=== PATIENT | female | born 1950 | race Caucasian/White ===

== ENCOUNTER 2023-03-31 13:25 | Outpatient (CLI) | payer MEDICARE ==
[2023-03-31 15:32] LABS: Hemoglobin 11.3 g/dL (12.0-15.5); Mean Corpuscular HGB CONC 31.9 g/dL (32.0-36.0); Mean Corpuscular Hemoglobin 32.5 pg (27.0-33.0); Mean Corpuscular Volume 101.7 fl (81.6-98.3); Mean Platelet Volume 10.9 fl (7.4-10.4); Platelet Count 179 10x3/uL (150-450); Red Blood Cell (RBC) Count 3.48 10x6/uL (3.90-5.03); White Blood Cell (WBC) Count 4.8 10x3/uL (3.5-10.5)
[2023-03-31 15:37] LABS: Prothrombin Time 10.6 sec (9.5-12.1)
[2023-03-31 15:43] LABS: Anion Gap 13 mmol/L (10-20); BUN (Urea Nitrogen) 15 mg/dL (9.8-20.1); Calc. Creatinine Clearance 0 mL/min (70-130); Carbon Dioxide 24 mmol/L (23-31); Chloride 108 mmol/L (98-107); Estimated GFR 40; Glucose 89 mg/dL (83-110); Potassium 4.4 mmol/L (3.5-5.1); Sodium 141 mmol/L (136-145)
== END 2023-03-31 13:26 | disposition home or self-care (01) ==
LOC: CSHLAB 13:25
PROVIDERS: ATTEND Orthopaedic Surgery
DX: Z01.818 Encounter for other preprocedural examination (principal); M47.816 Spondylosis without myelopathy or radiculopathy, lumbar region; M41.86 Other forms of scoliosis, lumbar region
CPT/HCPCS: 72100; 80048; 85027; 85610; 85730; 86850; 86900; 86901; 93005; 93010

== ENCOUNTER 2023-05-28 22:32 | Inpatient (IN) | payer MEDICARE ==
[2023-05-28] MEDS ORDERED: Ondansetron PF 4 MG/2 ML Vial IVP PRN (23:14)
[2023-05-28] MEDS ORDERED: Guaifenesin DM 100-10/5 ML UDCUP PO PRN (23:14)
[2023-05-28] MEDS ORDERED: Calcium Carbonate 500 MG ChewTAB PO PRN (23:14)
[2023-05-28] MEDS ORDERED: Ipratropium/Albuterol 3 ML NEB NEB PRN (23:19)
[2023-05-28] MEDS ORDERED: Ipratropium/Albuterol 3 ML NEB NEB SCH (23:30)
[2023-05-29 00:47] LABS: Actual Bicarbonate (HCO3v) 15.9 mEq/L (22-28); Base Excess -8.6 mEq/L (-2 - +2); Calcium, Ionized (venous) 1.11 mmol/L (1.16-1.32); Chloride (VBG) 101 mmol/L (98-106); Hematocrit-VBG 22 % (36.0-47.0); Hemoglobin (Hb) 7.4 g/dL (11.7-16.1); Puncture Site Other Site; RapidComm Collect By Lab; Sodium 125.8 mmol/L (133-146); pH (venous) 7.363 (7.32-7.43)
[2023-05-29 01:10] VITALS: BMI 37.9
[2023-05-29 01:12] LABS: #Monocytes 1.1 10x3/uL (0.0-1.1); #Neutrophils 8.6 10x3/uL (1.5-8.4); %Basophils 0.1 % (0.0-2.0); %Eosinophils 0.2 % (0.0-6.0); %Lymphocytes 8.8 % (18.0-47.0); %Monocytes 9.8 % (0.0-10.0); %Neutrophils 77.3 % (40.0-75.0); Hematocrit 18.4 % (34.9-44.5); Hemoglobin 6.1 g/dL (12.0-15.5); Mean Corpuscular HGB CONC 33.2 g/dL (32.0-36.0); Mean Corpuscular Hemoglobin 30.3 pg (27.0-33.0); Mean Corpuscular Volume 91.5 fl (81.6-98.3); Mean Platelet Volume 10.7 fl (7.4-10.4); Platelet Count 179 10x3/uL (150-450); RBC Distribution Width 15.6 % (11.5-14.5); Red Blood Cell (RBC) Count 2.01 10x6/uL (3.90-5.03); White Blood Cell (WBC) Count 11.2 10x3/uL (3.5-10.5)
[2023-05-29 01:21] LABS: PTT 34.8 sec (22.0-33.0); Prothrombin Time 10.4 sec (9.5-12.1)
[2023-05-29 01:24] LABS: ALT (SGPT) 51 U/L (8-55); AST (SGOT) 143 U/L (5-34); Alkaline Phosphatase 143 U/L (40-110); Anion Gap 18 mmol/L (10-20); BUN (Urea Nitrogen) 74 mg/dL (9.8-20.1); Bilirubin, Total 1.5 mg/dL (0.2-1.2); CK (CPK) 907 U/L (29-168); Calc. Creatinine Clearance 21 mL/min (70-130); Calcium 8.1 mg/dL (7.8-10.44); Carbon Dioxide 14 mmol/L (23-31); Chloride 101 mmol/L (98-107); Estimated GFR 12; Globulin 2.5 g/dL (2.4-3.5); Glucose 93 mg/dL (83-110); Potassium 4.5 mmol/L (3.5-5.1); Protein, Total 5.5 g/dL (5.8-8.1); Sodium 128 mmol/L (136-145)
[2023-05-29 01:39] LABS: Troponin I 0.234 ng/mL (< 0.028)
[2023-05-29] MEDS ORDERED: Vancomycin Dose by Levels Sliding Scale (Wt > 99) FS SCH (02:15)
[2023-05-29] MEDS ORDERED: Albumin 25% 25 GM/100 ML BOT IVPB SCH (02:45)
[2023-05-29] MEDS ORDERED: Sodium Bicarbonate 150 MEQ in Dextrose 5% in Water 1,000 ML IV SCH (03:00)
[2023-05-29] MEDS ORDERED: Vancomycin 1.5 GRAM/300 ML BAG 1.5 GM in Premix Bag 1 BAG IVPB SCH ×2 (04:00→08:00)
[2023-05-29] MEDS: Cefepime 1 GM in Sodium Chloride 0.9% 100 ML IVPB SCH ×2 (04:43→15:08)
[2023-05-29 06:17] LABS: Lactic Acid 0.9 mmol/L (0.5-2.2)
[2023-05-29 06:22] LABS: ALT (SGPT) 46 U/L (8-55); AST (SGOT) 128 U/L (5-34); Albumin 2.7 g/dL (3.4-4.8); Alkaline Phosphatase 133 U/L (40-110); Anion Gap 17 mmol/L (10-20); BUN (Urea Nitrogen) 74 mg/dL (9.8-20.1); Bilirubin, Total 1.4 mg/dL (0.2-1.2); Calc. Creatinine Clearance 21 mL/min (70-130); Calcium 8.1 mg/dL (7.8-10.44); Carbon Dioxide 13 mmol/L (23-31); Chloride 102 mmol/L (98-107); Estimated GFR 12; Globulin 2.8 g/dL (2.4-3.5); Glucose 91 mg/dL (83-110); Potassium 4.7 mmol/L (3.5-5.1); Protein, Total 5.5 g/dL (5.8-8.1); Sodium 127 mmol/L (136-145)
[2023-05-29 07:09] LABS: Bilirubin 1+ (Negative); Blood, Urine 250 (Negative); Clarity Cloudy (Clear); Glucose, Urine (Dipstick) Normal (Negative); Ketone, Urine Negative (Negative); Leukocyte 100 (Negative); Nitrite Negative (Negative); Protein, Urine (Dipstick) 30 mg/dl (Neg-Trace)
[2023-05-29 07:29] LABS: Bacteria/HPF 3+ HPF (None Seen); RBC/HPF Greater than 50 HPF (0-3); Squamous Epithelial 0-3 HPF (0-3); Transitional Epithelial 0-3 HPF (None Seen)
[2023-05-29 07:30] LABS: Calcium Oxalate Crystals Rare HPF (None Seen)
[2023-05-29 07:31] LABS: Yeast-Budding Rare HPF (None Seen)
[2023-05-29 07:39] LABS: SARS-CoV-2 NAA Rapid Test Not Detected (NotDetected)
[2023-05-29] MEDS ORDERED: Famotidine 20 MG TAB PO SCH (09:00)
[2023-05-29] MEDS: Metoprolol Tartrate 25 MG TAB PO SCH ×2 (09:49→20:27)
[2023-05-29] MEDS: Ferrous Sulfate 325 MG TAB PO SCH (09:49)
[2023-05-29] MEDS: Multivitamin W/ Minerals 1 TAB PO SCH (09:49)
[2023-05-29 11:59] LABS: #Monocytes 0.6 10x3/uL (0.0-1.1); #Neutrophils 6.8 10x3/uL (1.5-8.4); %Basophils 0.2 % (0.0-2.0); %Eosinophils 0.2 % (0.0-6.0); %Lymphocytes 9.9 % (18.0-47.0); %Neutrophils 78.8 % (40.0-75.0); Hematocrit 25.7 % (34.9-44.5); Hemoglobin 8.6 g/dL (12.0-15.5); Mean Corpuscular HGB CONC 33.5 g/dL (32.0-36.0); Mean Corpuscular Hemoglobin 30.2 pg (27.0-33.0); Mean Corpuscular Volume 90.2 fl (81.6-98.3); Platelet Count 131 10x3/uL (150-450); RBC Distribution Width 14.6 % (11.5-14.5); Red Blood Cell (RBC) Count 2.85 10x6/uL (3.90-5.03); White Blood Cell (WBC) Count 8.7 10x3/uL (3.5-10.5)
[2023-05-29 12:06] LABS: Anion Gap 16 mmol/L (10-20); BUN (Urea Nitrogen) 72 mg/dL (9.8-20.1); Calc. Creatinine Clearance 22 mL/min (70-130); Calcium 8.1 mg/dL (7.8-10.44); Carbon Dioxide 14 mmol/L (23-31); Chloride 104 mmol/L (98-107); Estimated GFR 12; Glucose 106 mg/dL (83-110); Potassium 4.2 mmol/L (3.5-5.1); Sodium 130 mmol/L (136-145)
[2023-05-29 14:14] LABS: Anion Gap 16 mmol/L (10-20); BUN (Urea Nitrogen) 71 mg/dL (9.8-20.1); Calc. Creatinine Clearance 22 mL/min (70-130); Carbon Dioxide 13 mmol/L (23-31); Chloride 101 mmol/L (98-107); Estimated GFR 13; Glucose 107 mg/dL (83-110); Potassium 4.1 mmol/L (3.5-5.1); Sodium 126 mmol/L (136-145)
[2023-05-29 14:18] LABS: Hematocrit 28.2 % (34.9-44.5)
[2023-05-29 14:19] LABS: #Monocytes 1.3 10x3/uL (0.0-1.1); #Neutrophils 10.3 10x3/uL (1.5-8.4); %Basophils 0.3 % (0.0-2.0); %Eosinophils 0.3 % (0.0-6.0); %Lymphocytes 10.1 % (18.0-47.0); %Monocytes 9.8 % (0.0-10.0); %Neutrophils 75.6 % (40.0-75.0); Hemoglobin 9.1 g/dL (12.0-15.5); Mean Corpuscular HGB CONC 32.3 g/dL (32.0-36.0); Mean Corpuscular Hemoglobin 30.2 pg (27.0-33.0); Mean Corpuscular Volume 93.7 fl (81.6-98.3); Mean Platelet Volume 10.9 fl (7.4-10.4); Platelet Count 131 10x3/uL (150-450); Red Blood Cell (RBC) Count 3.01 10x6/uL (3.90-5.03); White Blood Cell (WBC) Count 13.6 10x3/uL (3.5-10.5)
[2023-05-29 20:24] LABS: #Monocytes 0.8 10x3/uL (0.0-1.1); #Neutrophils 7.4 10x3/uL (1.5-8.4); %Basophils 0.2 % (0.0-2.0); %Eosinophils 0.4 % (0.0-6.0); %Lymphocytes 10.7 % (18.0-47.0); %Monocytes 8.6 % (0.0-10.0); %Neutrophils 75.6 % (40.0-75.0); Hematocrit 26.3 % (34.9-44.5); Hemoglobin 8.9 g/dL (12.0-15.5); Mean Corpuscular HGB CONC 33.8 g/dL (32.0-36.0); Mean Corpuscular Hemoglobin 30.5 pg (27.0-33.0); Mean Corpuscular Volume 90.1 fl (81.6-98.3); Mean Platelet Volume 10.7 fl (7.4-10.4); Platelet Count 137 10x3/uL (150-450); Red Blood Cell (RBC) Count 2.92 10x6/uL (3.90-5.03); White Blood Cell (WBC) Count 9.7 10x3/uL (3.5-10.5)
[2023-05-29] MEDS: Acetaminophen 325 MG TAB PO PRN (20:28)
[2023-05-29 20:45] LABS: Anion Gap 18 mmol/L (10-20); BUN (Urea Nitrogen) 69 mg/dL (9.8-20.1); Calc. Creatinine Clearance 24 mL/min (70-130); Calcium 7.9 mg/dL (7.8-10.44); Carbon Dioxide 14 mmol/L (23-31); Chloride 99 mmol/L (98-107); Estimated GFR 14; Glucose 111 mg/dL (83-110); Potassium 3.7 mmol/L (3.5-5.1); Sodium 127 mmol/L (136-145)
[2023-05-29] MEDS ORDERED: Atorvastatin Calcium 40 MG TAB PO SCH (21:00)
[2023-05-30] MEDS: Cefepime 1 GM in Sodium Chloride 0.9% 100 ML IVPB SCH ×2 (02:22→15:27)
[2023-05-30 03:51] LABS: Troponin I 0.108 ng/mL (< 0.028)
[2023-05-30 07:19] LABS: Vancomycin, Random 27.7 ug/mL (See Comment)
[2023-05-30 07:55] LABS: Anion Gap 16 mmol/L (10-20); BUN (Urea Nitrogen) 68 mg/dL (9.8-20.1); Calc. Creatinine Clearance 25 mL/min (70-130); Calcium 8.1 mg/dL (7.8-10.44); Carbon Dioxide 17 mmol/L (23-31); Chloride 100 mmol/L (98-107); Estimated GFR 15; Glucose 83 mg/dL (83-110); Potassium 3.6 mmol/L (3.5-5.1); Sodium 129 mmol/L (136-145)
[2023-05-30] MEDS: Metoprolol Tartrate 25 MG TAB PO SCH ×2 (08:17→21:23)
[2023-05-30] MEDS: Multivitamin W/ Minerals 1 TAB PO SCH (08:17)
[2023-05-30] MEDS: Ferrous Sulfate 325 MG TAB PO SCH (08:17)
[2023-05-30] MEDS: Famotidine 20 MG TAB PO SCH (08:18)
[2023-05-30] MEDS: Acetaminophen 325 MG TAB PO PRN (15:28)
[2023-05-31 03:48] LABS: Vancomycin, Random 20.8 ug/mL (See Comment)
[2023-05-31] MEDS: Cefepime 1 GM in Sodium Chloride 0.9% 100 ML IVPB SCH (03:48)
[2023-05-31 03:49] LABS: Anion Gap 15 mmol/L (10-20); BUN (Urea Nitrogen) 55 mg/dL (9.8-20.1); Calc. Creatinine Clearance 35 mL/min (70-130); Calcium 8.1 mg/dL (7.8-10.44); Carbon Dioxide 17 mmol/L (23-31); Chloride 104 mmol/L (98-107); Estimated GFR 22; Glucose 85 mg/dL (83-110); Potassium 3.6 mmol/L (3.5-5.1); Sodium 132 mmol/L (136-145)
[2023-05-31] MEDS: Acetaminophen 325 MG TAB PO PRN ×2 (03:56→16:54)
[2023-05-31] MEDS: Lactated Ringer's 1,000 ML IV SCH ×2 (08:33→16:42)
[2023-05-31] MEDS: Metoprolol Tartrate 25 MG TAB PO SCH ×2 (08:34→20:19)
[2023-05-31] MEDS: Famotidine 20 MG TAB PO SCH (08:34)
[2023-05-31] MEDS: Ferrous Sulfate 325 MG TAB PO SCH (08:35)
[2023-05-31] MEDS: Multivitamin W/ Minerals 1 TAB PO SCH (08:37)
[2023-06-01] MEDS: Acetaminophen 325 MG TAB PO PRN ×2 (02:01→07:56)
[2023-06-01] MEDS: Lactated Ringer's 1,000 ML IV SCH ×3 (02:53→23:43)
[2023-06-01] MEDS ORDERED: Cefepime 1 GM in Sodium Chloride 0.9% 100 ML IVPB SCH (03:00)
[2023-06-01 03:31] LABS: #Eosinphils 0.1 10x3/uL (0.0-0.5); #Monocytes 0.7 10x3/uL (0.0-1.1); #Neutrophils 5.2 10x3/uL (1.5-8.4); %Basophils 0.1 % (0.0-2.0); %Eosinophils 0.8 % (0.0-6.0); %Lymphocytes 14.1 % (18.0-47.0); %Monocytes 10.1 % (0.0-10.0); %Neutrophils 71.2 % (40.0-75.0); Hematocrit 26.4 % (34.9-44.5); Hemoglobin 8.7 g/dL (12.0-15.5); Mean Corpuscular Hemoglobin 30.4 pg (27.0-33.0); Mean Corpuscular Volume 92.3 fl (81.6-98.3); Mean Platelet Volume 10.4 fl (7.4-10.4); Platelet Count 164 10x3/uL (150-450); Red Blood Cell (RBC) Count 2.86 10x6/uL (3.90-5.03); White Blood Cell (WBC) Count 7.4 10x3/uL (3.5-10.5)
[2023-06-01 03:45] LABS: Anion Gap 12 mmol/L (10-20); BUN (Urea Nitrogen) 33 mg/dL (9.8-20.1); Calc. Creatinine Clearance 63 mL/min (70-130); Calcium 7.9 mg/dL (7.8-10.44); Carbon Dioxide 19 mmol/L (23-31); Chloride 110 mmol/L (98-107); Estimated GFR 45; Glucose 84 mg/dL (83-110); Potassium 3.5 mmol/L (3.5-5.1); Sodium 137 mmol/L (136-145)
[2023-06-01] MEDS: Famotidine 20 MG TAB PO SCH (07:54)
[2023-06-01] MEDS: Metoprolol Tartrate 25 MG TAB PO SCH ×2 (07:54→21:13)
[2023-06-01] MEDS: Ferrous Sulfate 325 MG TAB PO SCH (07:54)
[2023-06-01] MEDS: Multivitamin W/ Minerals 1 TAB PO SCH (07:54)
[2023-06-01] MEDS ORDERED: fentaNYL 50 mcg/mL 1 mL Vial SLOW IVP PRN (10:26)
[2023-06-01] MEDS ORDERED: Diphenoxylate HCl/Atropine Tablet PO PRN (10:33)
[2023-06-01] MEDS: traMADol HCl 50 MG TAB PO PRN ×2 (10:35→21:13)
[2023-06-01] MEDS: Cefepime 1 GM in Sodium Chloride 0.9% 100 ML IVPB SCH (15:18)
[2023-06-01] MEDS: Gabapentin 100 MG CAP PO SCH (21:11)
[2023-06-02] MEDS: Acetaminophen 325 MG TAB PO PRN (00:44)
[2023-06-02] MEDS: Cefepime 1 GM in Sodium Chloride 0.9% 100 ML IVPB SCH ×2 (02:34→15:06)
[2023-06-02] MEDS: traMADol HCl 50 MG TAB PO PRN ×2 (02:44→21:50)
[2023-06-02 05:38] LABS: #Monocytes 0.6 10x3/uL (0.0-1.1); #Neutrophils 6.1 10x3/uL (1.5-8.4); %Basophils 0.3 % (0.0-2.0); %Eosinophils 0.5 % (0.0-6.0); %Lymphocytes 12.6 % (18.0-47.0); %Monocytes 8.1 % (0.0-10.0); %Neutrophils 77.5 % (40.0-75.0); Hematocrit 24.7 % (34.9-44.5); Hemoglobin 8.1 g/dL (12.0-15.5); Mean Corpuscular HGB CONC 32.8 g/dL (32.0-36.0); Mean Corpuscular Hemoglobin 30.5 pg (27.0-33.0); Mean Corpuscular Volume 92.9 fl (81.6-98.3); Mean Platelet Volume 10.4 fl (7.4-10.4); Platelet Count 155 10x3/uL (150-450); Red Blood Cell (RBC) Count 2.66 10x6/uL (3.90-5.03); White Blood Cell (WBC) Count 7.9 10x3/uL (3.5-10.5)
[2023-06-02 05:44] LABS: Anion Gap 10 mmol/L (10-20); BUN (Urea Nitrogen) 19 mg/dL (9.8-20.1); Calc. Creatinine Clearance 88 mL/min (70-130); Calcium 7.9 mg/dL (7.8-10.44); Carbon Dioxide 20 mmol/L (23-31); Chloride 111 mmol/L (98-107); Estimated GFR 67; Glucose 77 mg/dL (83-110); Potassium 3.7 mmol/L (3.5-5.1); Sodium 137 mmol/L (136-145)
[2023-06-02] MEDS: Metoprolol Tartrate 25 MG TAB PO SCH ×2 (09:09→21:50)
[2023-06-02] MEDS: Ferrous Sulfate 325 MG TAB PO SCH (09:09)
[2023-06-02] MEDS: Famotidine 20 MG TAB PO SCH (09:10)
[2023-06-02] MEDS: Multivitamin W/ Minerals 1 TAB PO SCH (09:10)
[2023-06-02] MEDS: Gabapentin 100 MG CAP PO SCH ×2 (09:10→21:49)
[2023-06-02] MEDS: Lactated Ringer's 1,000 ML IV SCH (09:12)
[2023-06-02] MEDS: Diphenoxylate HCl/Atropine Tablet PO PRN (18:05)
[2023-06-03] MEDS: Cefepime 1 GM in Sodium Chloride 0.9% 100 ML IVPB SCH ×2 (03:29→14:25)
[2023-06-03] MEDS: Metoprolol Tartrate 25 MG TAB PO SCH (08:36)
[2023-06-03] MEDS: Ferrous Sulfate 325 MG TAB PO SCH (08:36)
[2023-06-03] MEDS: Famotidine 20 MG TAB PO SCH (08:36)
[2023-06-03] MEDS: Gabapentin 100 MG CAP PO SCH (08:37)
[2023-06-03] MEDS: Multivitamin W/ Minerals 1 TAB PO SCH (08:37)
[2023-06-03] MEDS: Diphenoxylate HCl/Atropine Tablet PO PRN (14:55)
[2023-06-03 16:37] VITALS: BP 183/79; TEMP 97.9
== END 2023-06-03 16:44 | DRG 393 ==
LOC: CSHTELE 22:32 → CSHIMCU 05-29 04:15 → CSHTELE 06-01 19:04
PROVIDERS: ADMIT Student in an Organized Health Care Education/Training Program; ATTEND Internal Medicine
PROC: 30233N1 Transfusion of Nonautologous Red Blood Cells into Peripheral Vein, Percutaneous Approach (ICD-10-PCS; principal; 2023-05-29)
DX: K66.1 Hemoperitoneum (principal); I22.2 Subsequent non-ST elevation (NSTEMI) myocardial infarction; N17.0 Acute kidney failure with tubular necrosis; D62 Acute posthemorrhagic anemia; E87.20 Acidosis, unspecified; M62.82 Rhabdomyolysis; T81.31XA Disruption of external operation (surgical) wound, not elsewhere classified, initial encounter; E87.1 Hypo-osmolality and hyponatremia; L03.90 Cellulitis, unspecified; G89.29 Other chronic pain; G62.9 Polyneuropathy, unspecified; T45.515A Adverse effect of anticoagulants, initial encounter; Z20.822 Contact with and (suspected) exposure to COVID-19; Z88.5 Allergy status to narcotic agent; Z79.82 Long term (current) use of aspirin; Z79.899 Other long term (current) drug therapy
CPT/HCPCS: 36415; 36416; 36430; 71045; 72131; 76775; 80048; 80053; 80202; 81001; 82550; 82805; 83605; 83880; 84145; 84484; 85025; 85520; 85610; 85652; 85730; 86140; 86850; 86900; 86901; 87040; 87324; 87449; 93005; 93010; 93306; 93970; 94640; 94760; 94762; J0692; J2405; J3370; J3490; J7070; J7120; J7620; P9016; P9047